=== PATIENT | male | born 1955 ===

== ENCOUNTER 2016-04-18 23:14 | Emergency (ER) | payer OTHER ==
--- NOTE | 2016-04-18 23:18 | ED SYNCOPE COMPLAINT ---
History of Present Illness General Chief Complaint: Syncope and Near-Syncope Stated Complaint: " BIBA SYNCOPE" Source: patient, EMS, W10 Exam Limitations: no limitations Vital Signs & Intake/Output Vital Signs & Intake/Output Vital Signs Date Time Temp Pulse Resp B/P Pulse O2 O2 Flow FiO2 Ox Delivery Rate 04/19 0602 98.6 80 18 121/75 96 Room Air 04/19 0220 80 18 138/79 94 Room Air 04/19 0219 77 18 138/81 94 Room Air 04/19 0219 70 18 138/79 96 Room Air 04/18 2345 94 Room Air 04/18 2330 98.6 62 18 110/57 94 Room Air ED Intake and Output 04/19 0000 04/18 1200 Intake Total 1000 Output Total Balance 1000 Intake, IV 1000 Allergies Coded Allergies: carbamazepine (UNKNOWN 04/18/16) Triage Nurses Notes Reviewed? yes Timing: recent history Precipitating Factors: lightheadedness, "I had diarrhea" Context: "I was on the toilet, had diarrhea, stood up, and then passed out." Episode Description: see below Loss of Consciousness: brief (seconds) Associated Symptoms: abdominal pain HPI: 60 yo gentleman h/o of dental extraction - the upper teeth last week, the lower teeth yesterday - presents after episode of syncope. He shares that he awoke tonight with diffuse abdominal discomfort. "I ran to the bathroom. I had a bout of diarrhea.... I stood up and walked out of the bathroom... I got really dizzy and passed out." He denies hitting his head. He notes that when he stood up again, he again felt dizzy. He notes no shortness of breath, headache, chest pain. He is presently comfortable upon arrival via EMS. Past History Travel History Traveled to [place] past 21 day No Medical History Any Pertinent Medical History? see below for history Surgical History Surgical History: none Family History Hx Contributory? No Review of Systems Review of Systems Constitutional: Reports: no symptoms. EENTM: Reports: no symptoms. Respiratory: Reports: no symptoms. Cardiovascular: Reports: no symptoms. GI: Reports: no symptoms. Genitourinary: Reports: no symptoms. Musculoskeletal: Reports: no symptoms. Skin: Reports: no symptoms. Neurological/Psychological: Reports: no symptoms. All Other Systems: Reviewed and Negative Physical Exam Physical Exam General Appearance: well developed/nourished, no apparent distress Head: atraumatic, normal appearance Eyes: Bilateral: normal appearance, PERRL, EOMI. Ears, Nose, Throat: normal pharynx, normal ENT inspection Neck: normal inspection, supple, full range of motion Respiratory: normal breath sounds, chest non-tender, no respiratory distress Cardiovascular: regular rate/rhythm Gastrointestinal: normal bowel sounds, soft, non-tender Back: normal inspection Extremities: normal inspection, normal capillary refill, normal range of motion Psychiatric: awake, alert, oriented x 3 Cranial Nerves: normal hearing, normal speech, PERRL Motor/Sensory: no motor/sensory deficits Core Measures ACS in differential dx? No CVA/TIA Diagnosis: No Severe Sepsis Present: No Septic Shock Present: No Progress Differential Diagnosis: vasodepressor syncope Plan of Care: Orders Procedure Date/time Status TROPONIN LEVEL 04/19 229 Complete EKG 04/19 229 Active TROPONIN LEVEL 04/18 2318 Complete LIPASE 04/18 2318 Complete HEPATIC FUNCTION PANEL 04/18 2318 Complete CBC WITHOUT DIFFERENTIAL 04/18 2318 Complete BASIC METABOLIC PANEL 04/18 2318 Complete AMYLASE 04/18 2318 Complete EKG 04/18 231 Active Laboratory Tests 04/19/16 0230: Troponin I < 0.01 04/18/16 2345: Anion Gap 12, Estimated GFR > 60, BUN/Creatinine Ratio 18.9, Glucose 325 H, Calcium 9.1, Total Bilirubin 0.5, Direct Bilirubin 0.4, AST 23, ALT 55, Alkaline Phosphatase 63, Troponin I < 0.01, Total Protein 6.3, Albumin 3.9, Amylase < 30 L, Lipase 145, CBC w Diff NO MAN DIFF REQ, RBC 5.30, MCV 83.3, MCH 27.7, RDW 14.2, MPV 10.4, Gran % 80.7 H, Lymphocytes % 14.8 L, Monocytes % 3.9, Eosinophils % 0.3, Basophils % 0.3, Absolute Granulocytes 9.4 H, Absolute Lymphocytes 1.7, Absolute Monocytes 0.5, Absolute Eosinophils 0, Absolute Basophils 0, PUBS MCHC 33.2 Diagnostic Imaging: Viewed by Me: Radiology Read, CT Scan. Discussed w/RAD: Radiology Read, CT Scan. Radiology Impression: abd/pelvic ct... mesenteritis... full report below. CXR Impression: no acute abnormality, no infiltrates, normal size heart, normal mediastinum Comments: PATIENT: EBER JEWELL PRESENT AGE: 60 PATIENT ACCOUNT NO: [id number] : 54 LOCATION: [facility] ORDERING PHYSICIAN: PETER CRESPO MD SERVICE DATE: 04/18/168611 EXAM TYPE: CAT - CT ABD & PELVIS W/O IV CONTRAS EXAMINATION: CT ABDOMEN AND PELVIS WITHOUT CONTRAST CLINICAL INFORMATION: Abdominal pain and vomiting. COMPARISON: None. TECHNIQUE: Contiguous axial thin section helical images of the abdomen and pelvis were performed without oral or IV contrast. The data set was reformatted in the coronal and sagittal planes and reviewed on an independent workstation. DLP: 534 mGy-cm. FINDINGS: The visualized lung bases are clear. The heart is enlarged. There is no pericardial effusion. The liver is of normal size and attenuation without focal lesions nor intrahepatic biliary ductal dilation. A normal gallbladder is identified. There is no wall thickening or discernible pericholecystic fluid. The spleen, pancreas, adrenal glands are unremarkable. Both kidneys are of normal size and attenuation without hydronephrosis or nephrolithiasis. There is no abdominal free fluid. There is neither mesenteric nor retroperitoneal lymphadenopathy. Inferior to the pancreas, there is an area of mesenteric fat stranding with scattered nonpathologically enlarged mesenteric lymph nodes. Normal unopacified loops of small and large bowel are identified. A normal appendix is identified. There is no pelvic free fluid. The urinary bladder is unremarkable. There is neither pelvic nor inguinal lymphadenopathy. Bone windows: Neither sclerotic nor lytic bone lesions are identified. IMPRESSION: Mesenteric fat stranding with scattered nonpathologically enlarged mesenteric Lymph nodes. Consider mesenteritis. No abdominal or pelvic free fluid. Normal appendix. Cardiomegaly. No pericardial effusion. DICTATED BY: MARLON LU MD DATE/TIME DICTATED:04/19/1623 DIRT SHOVELER:ROSELINE DATE/TIME TRANSCRIBED:04/19/1623 CONFIDENTIAL, DO NOT COPY WITHOUT APPROPRIATE AUTHORIZATION. <Electronically signed in Other Vendor System> SIGNED BY: MARLON LU MD 04/19/16 0031 PATIENT: EBER JEWELL PRESENT AGE: 60 PATIENT ACCOUNT NO: [id number] : 54 LOCATION: [facility] ORDERING PHYSICIAN: PETER CRESPO MD SERVICE DATE: 04/18/16 EXAM TYPE: RAD - XRY-PORTABLE CHEST XRAY EXAMINATION: CHEST 1 VIEW CLINICAL INFORMATION: Pain. Vomiting. COMPARISON: None. TECHNIQUE: An AP view of the chest is provided. FINDINGS: The cardiac silhouette is enlarged with a left ventricular configuration. The mediastinal and hilar contours are unremarkable. There are neither pleural effusions nor pneumothoraces. There are no consolidations. The osseous structures are unremarkable. IMPRESSION: No evidence for acute disease. Cardiomegaly. DICTATED BY: MARLON LU MD DATE/TIME DICTATED:04/19/1622 DIRT SHOVELER:ROSELINE DATE/TIME TRANSCRIBED:04/19/1622 CONFIDENTIAL, DO NOT COPY WITHOUT APPROPRIATE AUTHORIZATION. <Electronically signed in Other Vendor System> SIGNED BY: MARLON LU MD 04/19/1627 Departure Departure Disposition: HOME OR SELF CARE Condition: Stable Clinical Impression Primary Impression: Gastroenteritis Secondary Impressions: Vasovagal syncope Departure Forms: Customer Survey General Discharge Information Comments 04/19/16, 6:11am... after iv fluids, pt is not orthostatic, trops neg x 2, ekg benign x2. Pt feels better. He likely had vaso-vagal event from poor po intake (he has had dental surgery and all of his teeth have been removed recently). He also had a diarrheal episode. He is not feeling better, is able to ambulate without problem. I advocated close follow up with his PMD and return to ED if his symptoms recur.
[2016-04-18 23:56] LABS: ABSOLUTE BASOPHIL COUNT 0 /CUMM (0.0-0.2); ABSOLUTE EOSINOPHIL COUNT 0 /CUMM (0.0-0.7); ABSOLUTE GRANULOCYTE CT 9.4 /CUMM (1.4-6.5); ABSOLUTE LYMPH COUNT 1.7 /CUMM (1.2-3.4); ABSOLUTE MONOCYTE COUNT 0.5 /CUMM (0.10-0.60); BASOPHIL % 0.3 % (0.0-2.0); EOSINOPHIL % 0.3 % (0-5); GRANULOCYTE % 80.7 % (42.2-75.2); HEMATOCRIT 44.2 % (42-52); MEAN CORPUSCULAR HGB 27.7 PG (27.0-31.0); MEAN CORPUSCULAR HGB CONC 33.2 G/DL (33.0-37.0); MEAN CORPUSCULAR VOLUME 83.3 FL (80.0-94.0); MEAN PLATELET VOLUME 10.4 FL (7.4-10.4); PLATELET COUNT 205 /CUMM (130-400); RBC DISTRIBUTION WIDTH 14.2 % (11.5-14.5); WHITE BLOOD CELL COUNT 11.6 /CUMM (4.8-10.8)
--- NOTE | 2016-04-19 00:28 | RADIOLOGY REPORT ---
EXAMINATION: CHEST 1 VIEW CLINICAL INFORMATION: Pain. Vomiting. COMPARISON: None. TECHNIQUE: An AP view of the chest is provided. FINDINGS: The cardiac silhouette is enlarged with a left ventricular configuration. The mediastinal and hilar contours are unremarkable. There are neither pleural effusions nor pneumothoraces. There are no consolidations. The osseous structures are unremarkable. IMPRESSION: No evidence for acute disease. Cardiomegaly.
--- NOTE | 2016-04-19 00:31 | CT SCAN REPORT ---
EXAMINATION: CT ABDOMEN AND PELVIS WITHOUT CONTRAST CLINICAL INFORMATION: Abdominal pain and vomiting. COMPARISON: None. TECHNIQUE: Contiguous axial thin section helical images of the abdomen and pelvis were performed without oral or IV contrast. The data set was reformatted in the coronal and sagittal planes and reviewed on an independent workstation. DLP: 534 mGy-cm. FINDINGS: The visualized lung bases are clear. The heart is enlarged. There is no pericardial effusion. The liver is of normal size and attenuation without focal lesions nor intrahepatic biliary ductal dilation. A normal gallbladder is identified. There is no wall thickening or discernible pericholecystic fluid. The spleen, pancreas, adrenal glands are unremarkable. Both kidneys are of normal size and attenuation without hydronephrosis or nephrolithiasis. There is no abdominal free fluid. There is neither mesenteric nor retroperitoneal lymphadenopathy. Inferior to the pancreas, there is an area of mesenteric fat stranding with scattered nonpathologically enlarged mesenteric lymph nodes. Normal unopacified loops of small and large bowel are identified. A normal appendix is identified. There is no pelvic free fluid. The urinary bladder is unremarkable. There is neither pelvic nor inguinal lymphadenopathy. Bone windows: Neither sclerotic nor lytic bone lesions are identified. IMPRESSION: Mesenteric fat stranding with scattered nonpathologically enlarged mesenteric Lymph nodes. Consider mesenteritis. No abdominal or pelvic free fluid. Normal appendix. Cardiomegaly. No pericardial effusion.
[2016-04-19 06:02] VITALS: BP 121/75
== END 2016-04-19 06:03 ==
LOC: ERH 23:14
PROVIDERS: Pediatrics
DX: K52.9 Noninfective gastroenteritis and colitis, unspecified (principal); R55 Syncope and collapse
CPT/HCPCS: 74176; 93005; 93010; 96360; 96372; J1815